=== PATIENT | male | born 1950 | race Caucasian/White ===

== ENCOUNTER 2017-01-30 10:42 | Emergency (ER) | payer BC ==
--- NOTE | 2017-01-30 10:50 | Emergency Department Record ---
History of Present Illness - General Chief Complaint: Abdominal Pain Stated Complaint: ABD PAIN Time Seen by Provider: 01/30/17 10:42 Source: Patient Mode of Arrival: Ambulatory Limitations: No limitations - History of Present Illness Initial Comments: 67 yo male presents with right flank pain that started around 6:30am. The pain started suddenly and radiates down. No fever or chills. No hematuria. He has nausea but no vomiting. No diarrhea. No cough, shortness of breath and no chest pain. No history of similar pain in the past. No rash. No PCP. No surgical history. No current mediations. MD Complaint: Abdominal pain -: Hour(s) (4) Location: R Flank Radiation: R flank Migration to: R Flank Severity: Severe Quality: Aching, Sharp Consistency: Constant Improves With: Nothing Worsens With: Nothing Associated Symptoms: Anorexia, Nausea - Related Data Previous Rx's Medication Instructions Recorded Hydrocodone/Acetaminophen [[place] 1 each PO Q8H #10 tablet 01/30/17 5-325 Tablet] Tamsulosin HCl [Flomax] 0.4 mg PO DAILY #14 cap.er.24h 01/30/17 Allergies Allergy/AdvReac Type Severity Reaction Status Date / Time No Known Drug Allergies Allergy Verified 04/05/15 21:35 Review of Systems Constitutional: Denies: Chills, Fever, Malaise, Weakness Eyes: Denies: Eye discharge ENT: Denies: Congestion, Throat pain Respiratory: Denies: Cough, Dyspnea, Hemoptysis, Stridor, Wheezes Cardiovascular: Denies: Chest pain, Palpitations, Syncope Endocrine: Denies: Fatigue Gastrointestinal: Reports: As per HPI, Abdominal pain. Denies: Diarrhea, Nausea , Vomiting Genitourinary: Denies: Dysuria, Frequency, Hematuria Musculoskeletal: Reports: Back pain. Denies: Arthralgia, Joint swelling, Myalgia Skin: Denies: Bruising, Change in color, Rash Neurological: Denies: Headache, Numbness Psychiatric: Denies: Anxiety Hematological/Lymphatic: Denies: Blood Clots, Easy bleeding, Easy bruising, Swollen glands Past Medical History - SOCIAL HISTORY Smoking Status: Never smoker - RESPIRATORY Hx Respiratory Disorders: No - CARDIOVASCULAR Hx Cardio Disorders: No - NEURO Hx Neuro Disorders: No - GI Hx GI Disorders: No - Hx Genitourinary Disorders: No - ENDOCRINE Hx Endocrine Disorders: No - MUSCULOSKELETAL Hx Musculoskeletal Disorders: No - PSYCH Hx Psych Problems: No - HEMATOLOGY/ONCOLOGY Hx Hematology/Oncology Disorders: No Physical Exam - General General Appearance: Alert, Oriented x3, Cooperative, No acute distress Limitations: No limitations - Head Head exam: Atraumatic, Normal inspection - Eye Eye exam: Normal appearance, PERRL. negative: Conjunctival injection, Periorbital swelling - ENT ENT exam: Normal exam, Mucous membranes moist Ear exam: Normal external inspection Nasal Exam: Normal inspection Mouth exam: Normal external inspection - Neck Neck exam: Normal inspection, Full ROM. negative: Tenderness - Respiratory Respiratory exam: Normal lung sounds bilaterally. negative: Respiratory distress - Cardiovascular Cardiovascular Exam: Regular rate, Normal rhythm, Normal heart sounds Peripheral Pulses: 2+: Radial (R), Radial (L) - GI/Abdominal GI/Abdominal exam: Soft, Normal bowel sounds. negative: Distended, Guarding, Hernia, Pulsatile mass, Tenderness - Rectal Rectal exam: Deferred - exam: Deferred - Extremities Extremities exam: Normal inspection, Full ROM, Normal capillary refill. negative: Tenderness - Back Back exam: Reports: Normal inspection, CVA tenderness (R) (mild). Denies: CVA tenderness (L), Full ROM, Paraspinal tenderness, Rash noted, Vertebral tenderness - Neurological Neurological exam: Alert, Normal gait, Oriented X3 - Psychiatric Psychiatric exam: Normal affect, Normal mood - Skin Skin exam: Dry, Intact, Normal color, Warm Course - Reevaluation(s) Reevaluation #1: EMR reviewed. One prior for shoulder dislocation 01/30/17 10:55 01/30/17 10:57 Reevaluation #2: The labs were reviewed CR is 1.6 with GFR of 46 glucose is 240 01/30/17 11:53 No prior labs on EMR 01/30/17 11:54 Reevaluation #3: The CT scan was reviewed 1.4mm UVJ stone found on examination 01/30/17 12:21 01/30/17 12:29 I discussed the results with the patient He has not seen a PCP for many years I informed him of his stone, BP, CR, and glucose. (He ate a bagel just prior to onset of symptoms) I offered to set him up in the [facility]. He declined and stated he will call Dr Reyes to establish a new PCP His pain is well controlled at this time. Flomax ordered Reevaluation #4: UA is negative for infection I will call Dr Reyes's office today when they are open to facilitate follow up 01/30/17 12:35 Reevaluation #5: Pain is well controlled DC home at this time We discussed follow up and reasons to return 01/30/17 12:40 01/30/17 13:16 The patient was instructed no NSAIDS until recheck of his kidney function with CR of 1.6 I gave the patient information to Dr Reyes's office. The patient will call today for follow up Medical Decision Making - Lab Data Result diagrams: 01/30/17 10:55 01/30/17 10:55 Disposition Disposition: Discharge Clinical Impression: Renal stone, Hyperglycemia, Renal insufficiency Disposition: Home, Self-Care Condition: (1) Good Instructions: Renal Colic (ED), Impaired Kidney Function (ED) Additional Instructions: Call Dr Reyes's office today to schedule an appointment Return if you have fever, pain, nausea or vomiting or any new concerns Take the Flomax daily You will need your blood pressure, blood sugar, kidney function rechecked with a new family doctor in the next week. Prescriptions: Hydrocodone/Acetaminophen [[place] 5-325 Tablet] 1 each PO Q8H #10 tablet Tamsulosin HCl [Flomax] 0.4 mg PO DAILY #14 cap.er.24h Forms: Patient Portal Access Time of Disposition: 12:36
[2017-01-30] MEDS ORDERED: ONDANSETRON HCL IV 4 MG/2 ML VIAL IV ONE (10:52)
[2017-01-30] MEDS ORDERED: 0.9 % SODIUM CHLORIDE 1,000 ML BAG IV ONE (10:52)
[2017-01-30] MEDS ORDERED: MORPHINE SULFATE 5 MG/ML PFS IVP ONE (10:53)
[2017-01-30] MEDS ORDERED: ACETAMINOPHEN 1,000 MG/100 ML BTL IVPB ONE (10:56)
[2017-01-30 11:10] LABS: BASO % 0.4 % (0-6); EOS % 0.4 % (0-6); GRAN % 78.8 % (47-80); HEMATOCRIT 43.6 % (42.0-52.0); HEMOGLOBIN 14.8 gm/dl (14.0-18.0); LYMPH % 14.3 % (16-45); MEAN CELL VOLUME 89.2 fl (81-97); MEAN CORPUSCULAR HEMOGLOBIN 30.3 pg (27-33); MEAN CORPUSCULAR HGB CONC 33.9 g/dl (32-36); MEAN PLATELET VOLUME 10.2 fl (7.4-10.4); MONO % 6.1 % (0-9); PLATELET COUNT 182 K/uL (130-400); RED BLOOD COUNT 4.89 M/uL (4.40-5.70); RED CELL DISTRIBUTION WIDTH 12.9 % (11.5-14.5); WHITE BLOOD COUNT W/O DIFF 9.8 K/uL (4.2-12.2)
[2017-01-30 11:23] LABS: ALBUMIN 4.6 gm/dL (3.5-5.0); ANION GAP 9.9 (7-16); BILIRUBIN,TOTAL 1.37 mg/dL (0.2-1.3); CARBON DIOXIDE 23.1 mmol/L (22-30); CREATININE 1.6 mg/dL (0.66-1.25); TOTAL PROTEIN 8.1 gm/dL (6.3-8.2)
[2017-01-30 12:08] LABS: URINE APPEARANCE CLEAR; URINE BILIRUBIN NEGATIVE (NEGATIVE); URINE BLOOD SMALL (NEGATIVE); URINE COLOR YELLOW; URINE KETONE NEGATIVE (NEGATIVE); URINE LEUKOCYTE ESTERASE NEGATIVE (NEGATIVE); URINE NITRITE NEGATIVE (NEGATIVE); URINE PROTEIN NEGATIVE (NEGATIVE); URINE UROBILINOGEN 0.2 E.U./dL (0.20 - 1.00)
[2017-01-30 12:14] LABS: URINE BACTERIA NONE SEEN; URINE EPITHELIAL CELLS NONE SEEN (FEW); URINE WBC NONE SEEN (0-2/hpf)
[2017-01-30] MEDS ORDERED: TAMSULOSIN HCL 0.4 MG CAP.ER.24H PO ONE (12:21)
--- NOTE | 2017-01-30 20:03 | CT SCAN REPORT ---
DATE: 01/30/2017. EXAM: CT SCAN OF THE ABDOMEN AND PELVIS. HISTORY: Right flank pain. TECHNIQUE: Serial axial CT scan of the abdomen and pelvis was performed at 3.75 mm intervals from the dome of the diaphragm down to the pubis symphysis without the use of intravenous or oral contrast. Prone axial images through the pelvis are provided. COMPARISON: No comparison CT scans are available. FINDINGS: Lung windows of the lung bases demonstrate no CT evidence of any focal infiltrate or pleural effusion. The visualized heart size and contour are within normal limits. The liver, spleen, pancreas, gallbladder, and right adrenal gland are unremarkable. Within the left renal gland there is a nonspecific 1.4 cm nodule. This finding may represent adrenal adenoma. If there is further clinical concern, then an MRI of the adrenal glands can be obtained for further evaluation. There is mild right-sided hydronephrosis and hydroureter. Within the right ureterovesical junction, there is a partially obstructing 1.4 mm calculus which appears to be at the orifice of the right ureterovesical junction. There is no CT evidence of left-sided hydronephrosis or hydroureter. No obstructive calculi are noted within the left kidney. Within the inferior pole of the left kidney there is a 6.6 mm hyperdense structure which may represent a proteinaceous cyst. If there is further clinical concern, then an MRI of the kidneys can be obtained for further evaluation. The contour and caliber of the noncontrasted abdominal aorta and pelvic arteries are within normal limits. There is no CT evidence of retroperitoneal, pelvic, or inguinal lymphadenopathy. The bowel gas pattern is nonspecific and nonobstructive. There is no CT evidence for free intraperitoneal fluid or free intraperitoneal air. The appendix is clearly visualized, and there is no CT evidence of appendicitis. The urinary bladder is unremarkable. The prostate is moderately enlarged. Questionable left-sided hydrocele is noted. The bone windows demonstrate no CT evidence of a fracture or dislocation of the visualized osseus structures of the abdomen and pelvis. IMPRESSION: PARTIALLY OBSTRUCTING 1.4 MM CALCULUS IS NOTED WITHIN THE RIGHT URETEROVESICAL JUNCTION DISCUSSED ABOVE. JOB NUMBER: [id number] MTDD
== END 2017-01-30 13:29 | disposition home or self-care (01) ==
LOC: ER 10:42
DX: N13.2 Hydronephrosis with renal and ureteral calculous obstruction (principal); R73.9 Hyperglycemia, unspecified; N28.9 Disorder of kidney and ureter, unspecified; R11.0 Nausea
CPT/HCPCS: 99284 ×2; 96374; 96375; 85025; 80076; 80048; 81001; 74176; J2405; J7030